=== PATIENT | female | born 1980 | race Hispanic/Latino ===

== ENCOUNTER 2019-10-19 09:16 | Emergency (ER) | payer MEDICAID, SELFPAY ==
[2019-10-19 09:58] LABS: #Basophils 0.1 thou/uL (0.0-0.2); #Eosinphils 0.3 thou/uL (0.0-0.7); #Lymphocytes 2.1 thou/uL (1.20-3.40); #Monocytes 0.4 thou/uL (0.11-0.59); #Neutrophils 3.5 thou/uL (1.40-6.50); %Basophils 1.2 % (0.0-1.0); %Eosinophils 5.1 % (0.0-10.0); %Lymphocytes 32.5 % (21.0-51.0); %Monocytes 6.4 % (0.0-10.0); %Neutrophils 54.9 % (42.0-75.0); Hemoglobin 7.8 g/dL (12.0-16.0); Mean Corpuscular HGB CONC 33.3 g/dL (32.0-36.0); Mean Corpuscular Hemoglobin 30.7 pg (27.0-31.0); Mean Platelet Volume 7.1 fL (7.4-10.4); Platelet Count 274 thou/uL (130-400); RBC Distribution Width 11.4 % (11.5-14.5); Red Blood Cell (RBC) Count 2.53 mill/uL (4.20-5.40); White Blood Cell (WBC) Count 6.5 thou/uL (4.8-10.8)
[2019-10-19 10:06] LABS: BHCG - Serum Negative (NEGATIVE); Pregs Control Background? CLEAR/WHITE (CLR/WHITE); Pregs Control Bar Appear? YES (CONTROL BAR)
[2019-10-19 10:19] LABS: ALT (SGPT) Less than 7 U/L (8-55); AST (SGOT) 9 U/L (5-34); Albumin 3.6 g/dL (3.5-5.0); Alkaline Phosphatase 98 U/L (40-110); Anion Gap 24 mmol/L (10-20); BUN (Urea Nitrogen) 94 mg/dL (7.0-18.7); Bilirubin, Total 0.5 mg/dL (0.2-1.2); Calc. Creatinine Clearance 0 mL/min (70-130); Calcium 7.6 mg/dL (7.8-10.44); Carbon Dioxide 22 mmol/L (22-29); Chloride 101 mmol/L (98-107); Estimated GFR-MDRD 3; Globulin 2.6 g/dL (2.4-3.5); Glucose 95 mg/dL (70-105); Potassium 4.3 mmol/L (3.5-5.1); Protein, Total 6.2 g/dL (6.0-8.3); Sodium 143 mmol/L (136-145)
[2019-10-19] MEDS ORDERED: Heparin 10,000 UNITS/ 10 ML VIAL ONE (12:34)
--- NOTE | 2019-10-24 12:30 | EKG ---
Test Reason : DIZZINESS Blood Pressure : / mmHG Vent. Rate : 078 BPM Atrial Rate : 078 BPM P-R Int : 176 ms QRS Dur : 096 ms QT Int : 394 ms P-R-T Axes : 043 044 051 degrees QTc Int : 449 ms Normal sinus rhythm Normal ECG Confirmed by JOANN RESENDIZ DO ([id number]), editorial assistant JERRICA RODRIGUEZ ([id number]) on 10/24/2019 12:29:24 PM Referred By: Confirmed By:JOANN RESENDIZ DO
== END 2019-10-19 19:30 | disposition home or self-care (01) ==
LOC: ERS 09:16
DX: N18.9 Chronic kidney disease, unspecified (principal); Z99.2 Dependence on renal dialysis
CPT/HCPCS: 36415; 80053; 84703; 85025; 90935; 93005; G0257; J1644

== ENCOUNTER 2019-11-10 11:32 | Emergency (ER) | payer MEDICAID, OTHER ==
[~2019-11-10 11:32] MED LIST: Heparin 10,000 UNITS/ 10 ML VIAL ONE
--- NOTE | 2019-11-10 12:53 | RAD ---
XR Chest 1 View Portable HISTORY: Dizziness COVID 19 Positive COMPARISON: None FINDINGS: The heart size is normal. A right-sided catheter is seen with tip in the projection of the SVC. The lungs are well expanded without focal areas of consolidation, pneumothorax or pleural effusions. IMPRESSION: No radiographic evidence of acute cardiopulmonary process.
[2019-11-10 13:16] LABS: #Eosinphils 0.1 thou/uL (0.0-0.7); #Lymphocytes 1.7 thou/uL (1.20-3.40); #Monocytes 0.3 thou/uL (0.11-0.59); #Neutrophils 3.1 thou/uL (1.40-6.50); %Basophils 0.2 % (0.0-1.0); %Eosinophils 1.5 % (0.0-10.0); %Lymphocytes 31.8 % (21.0-51.0); %Monocytes 6.2 % (0.0-10.0); %Neutrophils 60.4 % (42.0-75.0); Hemoglobin 8.7 g/dL (12.0-16.0); Mean Corpuscular HGB CONC 33.3 g/dL (32.0-36.0); Mean Corpuscular Hemoglobin 30.6 pg (27.0-31.0); Mean Corpuscular Volume 91.7 fL (78.0-98.0); Mean Platelet Volume 7.3 fL (7.4-10.4); Platelet Count 202 thou/uL (130-400); RBC Distribution Width 11.9 % (11.5-14.5); Red Blood Cell (RBC) Count 2.85 mill/uL (4.20-5.40); White Blood Cell (WBC) Count 5.2 thou/uL (4.8-10.8)
[2019-11-10 13:34] LABS: ALT (SGPT) 7 U/L (8-55); AST (SGOT) 13 U/L (5-34); Albumin 3.9 g/dL (3.5-5.0); Alkaline Phosphatase 78 U/L (40-110); Anion Gap 24 mmol/L (10-20); BUN (Urea Nitrogen) 82 mg/dL (7.0-18.7); Bilirubin, Total 0.7 mg/dL (0.2-1.2); Calc. Creatinine Clearance 0 mL/min (70-130); Calcium 6.1 mg/dL (7.8-10.44); Carbon Dioxide 18 mmol/L (22-29); Chloride 103 mmol/L (98-107); Estimated GFR-MDRD 2; Globulin 2.9 g/dL (2.4-3.5); Glucose 97 mg/dL (70-105); Potassium 4.6 mmol/L (3.5-5.1); Protein, Total 6.8 g/dL (6.0-8.3); Sodium 140 mmol/L (136-145)
[2019-11-10 16:16] LABS: HBSAg Index 0.16 S/CO (0-0.99); Hep B Surf Ag Non-Reactive S/CO (NonReactive)
[2019-11-10] MEDS ORDERED: Calcium Acetate 667 MG CAP PO SCH (17:00)
--- NOTE | 2019-11-10 17:10 | CON ---
DATE OF CONSULTATION: CONSULTING PHYSICIAN: Dr. Amaro. REASON FOR CONSULTATION: End-stage renal disease evaluation. REASON FOR ADMISSION: Not feeling well. HISTORY OF PRESENT ILLNESS: This is a female with history of end-stage renal disease, hypertension, who does not have funding to have outpatient dialysis, came to the ER with complaints of not feeling well and is being evaluated. She is in need for dialysis, her last dialysis was a week ago. She has also been tested for COVID. PAST MEDICAL HISTORY: Positive for end-stage renal disease and hypertension. PAST SURGICAL HISTORY: Dialysis access placement, renal biopsy, cholecystectomy. HOME MEDICATIONS: Reviewed. ALLERGIES: NO KNOWN DRUG ALLERGIES. SOCIAL HISTORY: No smoking, alcohol, or illicit drug use. FAMILY HISTORY: No history of kidney disease. REVIEW OF SYSTEMS: The following complete review of systems was negative, unless otherwise mentioned in the HPI or below: Constitutional: Weight loss or gain, ability to conduct usual activities. Skin: Rash, itching. Eyes: Double vision, pain. ENT/Mouth: Nose bleeding, neck stiffness, pain, tenderness. Cardiovascular: Palpitations, dyspnea on exertion, orthopnea. Respiratory: Shortness of breath, wheezing, cough, hemoptysis, fever or night sweats. Gastrointestinal: Poor appetite, abdominal pain, heartburn, nausea, vomiting, constipation, or diarrhea. Genitourinary: Urgency, frequency, dysuria, nocturia. Musculoskeletal: Pain, swelling. Neurologic/Psychiatric: Anxiety, depression. Allergy/Immunologic: Skin rash, bleeding tendency. PHYSICAL EXAMINATION: GENERAL: This is a well-built female, in no apparent distress. VITAL SIGNS: Reviewed. HEENT: Atraumatic and normocephalic. NECK: Supple. CVS: S1 and S2 heard. RESPIRATORY: Clear. GI: Abdomen is soft. MUSCULOSKELETAL: 1+ edema. NEUROLOGIC: Alert and awake. PSYCHIATRIC: Depressed. LABORATORY DATA: Hemoglobin is 8.7. Potassium 4.6, BUN 82, creatinine 16.5. ASSESSMENT AND PLAN: 1. End-stage renal disease. Plan to have dialysis. 2. Anemia. We will have Epogen. 3. Hypocalcemia. We will start on PhosLo. 4. Acidosis. We will have dialysis. 5. History of hypertension, stable. Plan to have dialysis. Unfortunately, the patient cannot have regular dialysis session. The patient was advised to come to the ER if not feeling well or at least once a week. Continue dialysis as needed. Job ID: [id number]
[2019-11-10] MEDS ORDERED: EPOETIN ALFA-EPBX (ESRD) 10,000 UNIT/ML VIAL IJ SCH (18:45)
[2019-11-10] MEDS ORDERED: Acetaminophen 500 MG TAB ONE (22:22)
--- NOTE | 2019-11-17 16:31 | EKG ---
Test Reason : Blood Pressure : / mmHG Vent. Rate : 073 BPM Atrial Rate : 073 BPM P-R Int : 178 ms QRS Dur : 086 ms QT Int : 452 ms P-R-T Axes : 040 051 069 degrees QTc Int : 497 ms Normal sinus rhythm Normal ECG No acute process Confirmed by DEISI ROBLEDO, STACY Mccarthy ([id number]), video effects editor MARIA ISABEL AQUINO ([id number]) on 11/17/2019 4:31:02 PM Referred By: Confirmed By:STACY LIPSCOMB MD
== END 2019-11-10 22:26 | disposition home or self-care (01) ==
LOC: ERS 11:32
DX: N18.6 End stage renal disease (principal); Z20.828 Contact with and (suspected) exposure to other viral communicable diseases; Z99.2 Dependence on renal dialysis
CPT/HCPCS: 36415; 71045; 80053; 85025; 87340; 90935; 93005; G0257; J1644; Q5105; U0002

== ENCOUNTER 2019-11-17 12:57 | Emergency (ER) | payer MEDICAID ==
[2019-11-17 14:33] LABS: #Basophils 0.1 thou/uL (0.0-0.2); #Eosinphils 0.2 thou/uL (0.0-0.7); #Lymphocytes 2.4 thou/uL (1.20-3.40); #Monocytes 0.5 thou/uL (0.11-0.59); %Basophils 1.1 % (0.0-1.0); %Eosinophils 3.2 % (0.0-10.0); %Lymphocytes 39.1 % (21.0-51.0); %Monocytes 7.7 % (0.0-10.0); %Neutrophils 48.9 % (42.0-75.0); Mean Corpuscular Hemoglobin 31.2 pg (27.0-31.0); Mean Corpuscular Volume 91.6 fL (78.0-98.0); Mean Platelet Volume 7.2 fL (7.4-10.4); Platelet Count 295 thou/uL (130-400); Red Blood Cell (RBC) Count 2.58 mill/uL (4.20-5.40); White Blood Cell (WBC) Count 6.1 thou/uL (4.8-10.8)
[2019-11-17 14:56] LABS: ALT (SGPT) Less than 7 U/L (8-55); AST (SGOT) 9 U/L (5-34); Albumin 3.6 g/dL (3.5-5.0); Alkaline Phosphatase 85 U/L (40-110); Anion Gap 25 mmol/L (10-20); BUN (Urea Nitrogen) 101 mg/dL (7.0-18.7); Bilirubin, Total 0.6 mg/dL (0.2-1.2); Calc. Creatinine Clearance 0 mL/min (70-130); Calcium 6.3 mg/dL (7.8-10.44); Carbon Dioxide 19 mmol/L (22-29); Chloride 97 mmol/L (98-107); Estimated GFR-MDRD 2; Globulin 2.9 g/dL (2.4-3.5); Glucose 92 mg/dL (70-105); Protein, Total 6.5 g/dL (6.0-8.3); Sodium 136 mmol/L (136-145)
--- NOTE | 2019-11-17 15:01 | RAD ---
XR Chest 1 View Portable HISTORY: Fatigue and generalized weakness. Patient on dialysis COMPARISON: 11/10/2019 FINDINGS: The heart size is normal. Right-sided dialysis catheter remains in place with tip in the pr ojection of the cavoatrial junction. The lungs are well expanded without focal areas of consolidation, mary kay pulmonary edema, pneumothorax or pleural effusions. IMPRESSION: No radiographic evidence of acute cardiopulmonary process.
[2019-11-17] MEDS ORDERED: Acetaminophen 325 MG TAB ONE (17:06)
[2019-11-17] MEDS ORDERED: Ondansetron ODT 4 MG TAB ONE (17:06)
== END 2019-11-17 21:51 | disposition home or self-care (01) ==
LOC: ERS 12:57
DX: I12.9 Hypertensive chronic kidney disease with stage 1 through stage 4 chronic kidney disease, or unspecified chronic kidney disease (principal); N18.9 Chronic kidney disease, unspecified
CPT/HCPCS: 36415; 71045; 80053; 85025; 90935; 93005; G0257; J1644; Q0162

== ENCOUNTER 2019-11-23 10:36 | Emergency (ER) | payer MEDICAID, OTHER ==
[2019-11-23 12:57] LABS: #Basophils 0.1 thou/uL (0.0-0.2); #Eosinphils 0.2 thou/uL (0.0-0.7); #Lymphocytes 2.5 thou/uL (1.20-3.40); #Monocytes 0.6 thou/uL (0.11-0.59); #Neutrophils 4.3 thou/uL (1.40-6.50); %Basophils 0.9 % (0.0-1.0); %Eosinophils 2.1 % (0.0-10.0); %Lymphocytes 32.7 % (21.0-51.0); %Monocytes 8.3 % (0.0-10.0); %Neutrophils 56.1 % (42.0-75.0); Hemoglobin 8.3 g/dL (12.0-16.0); Mean Corpuscular HGB CONC 32.8 g/dL (32.0-36.0); Mean Corpuscular Hemoglobin 30.8 pg (27.0-31.0); Mean Corpuscular Volume 93.9 fL (78.0-98.0); Mean Platelet Volume 6.7 fL (7.4-10.4); Platelet Count 333 thou/uL (130-400); RBC Distribution Width 11.6 % (11.5-14.5); Red Blood Cell (RBC) Count 2.69 mill/uL (4.20-5.40); White Blood Cell (WBC) Count 7.6 thou/uL (4.8-10.8)
[2019-11-23] MEDS ORDERED: Heparin 10,000 UNITS/ 10 ML VIAL ONE (13:06)
[2019-11-23 13:26] LABS: ALT (SGPT) Less than 7 U/L (8-55); AST (SGOT) 8 U/L (5-34); Albumin 3.8 g/dL (3.5-5.0); Alkaline Phosphatase 92 U/L (40-110); Anion Gap 23 mmol/L (10-20); BUN (Urea Nitrogen) 82 mg/dL (7.0-18.7); Bilirubin, Total 0.6 mg/dL (0.2-1.2); Calc. Creatinine Clearance 0 mL/min (70-130); Calcium 6.9 mg/dL (7.8-10.44); Carbon Dioxide 18 mmol/L (22-29); Chloride 104 mmol/L (98-107); Estimated GFR-MDRD 3; Globulin 2.9 g/dL (2.4-3.5); Glucose 82 mg/dL (70-105); Potassium 5.6 mmol/L (3.5-5.1); Protein, Total 6.7 g/dL (6.0-8.3); Sodium 139 mmol/L (136-145)
[2019-11-23 14:16] LABS: Bacteria/HPF None Seen HPF (None Seen); Bilirubin Negative (Negative); Blood, Urine 1+ (Negative); Clarity Clear (Clear); Glucose, Urine (Dipstick) 30 mg/dL (Negative); Ketone, Urine Negative (Negative); Leukocyte Negative Leu/uL (Negative); Nitrite Negative (Negative); Protein, Urine (Dipstick) 100 mg/dL (Neg-Trace); RBC/HPF 0-3 HPF (0-3); Specific Gravity, Urine 1.009 (1.002-1.036); Squamous Epithelial 0-3 HPF (0-3); Urobilinogen Normal mg/dL (Less than 2); WBC/HPF 0-3 HPF (0-3)
--- NOTE | 2019-11-23 14:35 | RAD ---
XR Chest 1 View Portable HISTORY: Nausea and vomiting COMPARISON: 11/17/2019 FINDINGS: The heart size is normal. Right-sided Port-A-Cath remains in place. The lungs are well expa nded without focal areas of consolidation, pneumothorax or pleural effusions. IMPRESSION: No radiographic evidence of acute cardiopulmonary process.
[2019-11-23] MEDS ORDERED: EPOETIN ALFA-EPBX (ESRD) 10,000 UNIT/ML VIAL IVP SCH (17:00)
--- NOTE | 2019-11-23 19:47 | CON ---
DATE OF CONSULTATION: 11/23/2019 CONSULTING PHYSICIAN: ER physician. REASON FOR CONSULTATION: End-stage renal disease evaluation and care. REASON FOR ADMISSION: Nausea, not feeling well. HISTORY OF PRESENT ILLNESS: This is a 39-year-old female with history of end-stage renal disease, hypertension, came to the hospital with above complaints and she gets dialysis as needed in the ER because she is undocumented and cannot have outpatient dialysis setup. PAST MEDICAL HISTORY: Positive for; 1. End-stage renal disease. 2. Hypertension. 3. Renal sclerosis. PAST SURGICAL HISTORY: 1. Dialysis access placement. 2. Renal biopsy. 3. Cholecystectomy. HOME MEDICATIONS: Reviewed. ALLERGIES: NO KNOWN DRUG ALLERGIES. SOCIAL HISTORY: No smoking, alcohol, or illicit drug abuse. FAMILY HISTORY: No history of kidney disease. REVIEW OF SYSTEMS: The following complete review of systems was negative, unless otherwise mentioned in the HPI or below: CONSTITUTIONAL: Weight loss or gain, ability to conduct usual activities. SKIN: Rash, itching. EYES: Double vision, pain. ENT/MOUTH: Nose bleeding, neck stiffness, pain, tenderness. CARDIOVASCULAR: Palpitations, dyspnea on exertion, orthopnea. RESPIRATORY: Shortness of breath, wheezing, cough, hemoptysis, fever or night sweats. GASTROINTESTINAL: Poor appetite, abdominal pain, heartburn, nausea, vomiting, constipation, or diarrhea. GENITOURINARY: Urgency, frequency, dysuria, nocturia. MUSCULOSKELETAL: Pain, swelling. NEUROLOGIC/PSYCHIATRIC: Anxiety, depression. ALLERGY/IMMUNOLOGIC: Skin rash, bleeding tendency. PHYSICAL EXAMINATION: GENERAL: This is a well-built female, in no apparent distress. VITAL SIGNS: Reviewed. HEENT: Atraumatic, normocephalic. NECK: Supple. CVS: S1, S2 heard. RESPIRATORY: Clear. GI: Abdomen is soft. MUSCULOSKELETAL: No tenderness. No edema. DERMATOLOGIC: No skin rash. NEUROLOGIC: Alert and awake. PSYCHIATRIC: Mood and affect normal. LABORATORY DATA: Hemoglobin 8.3. Potassium 5.6, BUN is 82, creatinine is 15.1. ASSESSMENT AND PLAN: 1. End-stage renal disease. We will have dialysis. Since she cannot have outpatient dialysis, the patient is getting p.r.n. dialysis from ER. 2. Hyperkalemia. 3. Acidosis. 4. Anemia. We will have Epogen. 5. History of hypertension, stable. We will have dialysis. The patient is seen in dialysis. We will continue her on dialysis as tolerated. Prognosis is very poor. Job ID: [id number]
== END 2019-11-23 22:09 | disposition home or self-care (01) ==
LOC: ERS 10:36
DX: I12.0 Hypertensive chronic kidney disease with stage 5 chronic kidney disease or end stage renal disease (principal); N18.6 End stage renal disease; Z99.2 Dependence on renal dialysis
CPT/HCPCS: 36415; 71045; 80053; 81003; 81015; 85025; 90935; 93005; 94760; G0257; J1644

== ENCOUNTER 2019-11-30 07:52 | Emergency (ER) | payer MEDICAID ==
[2019-11-30 08:17] LABS: #Eosinphils 0.1 thou/uL (0.0-0.7); #Lymphocytes 2.8 thou/uL (1.20-3.40); #Monocytes 0.5 thou/uL (0.11-0.59); #Neutrophils 2.9 thou/uL (1.40-6.50); %Basophils 0.7 % (0.0-1.0); %Eosinophils 2.3 % (0.0-10.0); %Lymphocytes 44.3 % (21.0-51.0); %Monocytes 7.1 % (0.0-10.0); %Neutrophils 45.7 % (42.0-75.0); Hemoglobin 7.3 g/dL (12.0-16.0); Mean Corpuscular Hemoglobin 30.7 pg (27.0-31.0); Mean Corpuscular Volume 93.3 fL (78.0-98.0); Mean Platelet Volume 7.3 fL (7.4-10.4); Platelet Count 221 thou/uL (130-400); RBC Distribution Width 11.7 % (11.5-14.5); Red Blood Cell (RBC) Count 2.38 mill/uL (4.20-5.40); White Blood Cell (WBC) Count 6.3 thou/uL (4.8-10.8)
--- NOTE | 2019-11-30 08:30 | RAD ---
XR Chest 1 View Portable HISTORY: Fluid overload. Patient on dialysis. Dizziness and nausea. 4 weeks ago tested positive for C OVID19 COMPARISON: 11/23/2019 FINDINGS: The heart size is normal. Right-sided dialysis catheter remains in place The lungs are well expanded without focal areas of consolidation, pneumothorax or pleural effusions. IMPRESSION: No radiographic evidence of acute cardiopulmonary process.
[2019-11-30 08:37] LABS: Magnesium 2.5 mg/dL (1.6-2.6)
[2019-11-30 08:43] LABS: ALT (SGPT) Less than 7 U/L (8-55); AST (SGOT) 7 U/L (5-34); Albumin 3.5 g/dL (3.5-5.0); Alkaline Phosphatase 83 U/L (40-110); Anion Gap 23 mmol/L (10-20); BUN (Urea Nitrogen) 71 mg/dL (7.0-18.7); Bilirubin, Total 0.6 mg/dL (0.2-1.2); Calc. Creatinine Clearance 0 mL/min (70-130); Calcium 6.9 mg/dL (7.8-10.44); Carbon Dioxide 18 mmol/L (22-29); Chloride 103 mmol/L (98-107); Estimated GFR-MDRD 3; Globulin 2.5 g/dL (2.4-3.5); Glucose 91 mg/dL (70-105); Phosphorus 10.1 mg/dL (2.3-4.7); Sodium 139 mmol/L (136-145)
[2019-11-30] MEDS ORDERED: Heparin 10,000 UNITS/ 10 ML VIAL ONE (11:05)
== END 2019-11-30 15:55 | disposition home or self-care (01) ==
LOC: ERS 07:52
DX: I12.9 Hypertensive chronic kidney disease with stage 1 through stage 4 chronic kidney disease, or unspecified chronic kidney disease (principal); N18.9 Chronic kidney disease, unspecified; Z99.2 Dependence on renal dialysis
CPT/HCPCS: 71045; 80053; 83735; 84100; 85025; 90935; 93005; G0257; J1644

== ENCOUNTER 2019-12-07 07:50 | Emergency (ER) | payer MEDICAID, OTHER, SELFPAY ==
[2019-12-07 08:30] LABS: #Basophils 0.1 thou/uL (0.0-0.2); #Eosinphils 0.3 thou/uL (0.0-0.7); #Lymphocytes 2.9 thou/uL (1.20-3.40); #Monocytes 0.6 thou/uL (0.11-0.59); #Neutrophils 3.2 thou/uL (1.40-6.50); %Basophils 1.5 % (0.0-1.0); %Eosinophils 3.7 % (0.0-10.0); %Monocytes 8.3 % (0.0-10.0); %Neutrophils 45.6 % (42.0-75.0); Mean Corpuscular HGB CONC 33.6 g/dL (32.0-36.0); Mean Corpuscular Hemoglobin 31.7 pg (27.0-31.0); Mean Corpuscular Volume 94.4 fL (78.0-98.0); Platelet Count 171 thou/uL (130-400); RBC Distribution Width 12.2 % (11.5-14.5); Red Blood Cell (RBC) Count 2.21 mill/uL (4.20-5.40)
--- NOTE | 2019-12-07 08:30 | RAD ---
EXAM: CHEST ONE VIEW HISTORY: Dizziness, nausea, vomiting, and weakness. Chest pain. COMPARISON: 11/30/2019 FINDINGS: Right-sided tunneled hemodialysis catheter remains in place. Cardiac silhouette is magnified by proje ction. Pulmonary vasculature is within normal limits. The lungs are clear. The osseous structures are intact. Surgical clips overlie the right upper quadrant. IMPRESSION: No acute cardiopulmonary process.
[2019-12-07 08:33] LABS: BHCG - Serum Negative (NEGATIVE); Pregs Control Background? CLEAR/WHITE (CLR/WHITE); Pregs Control Bar Appear? YES (CONTROL BAR)
[2019-12-07 09:44] LABS: Albumin 3.6 g/dL (3.5-5.0)
[2019-12-07 09:45] LABS: Chloride 105 mmol/L (98-107); Sodium 141 mmol/L (136-145)
[2019-12-07 09:46] LABS: Calcium 7.3 mg/dL (7.8-10.44)
[2019-12-07 09:47] LABS: Globulin 2.5 g/dL (2.4-3.5); Glucose 77 mg/dL (70-105); Protein, Total 6.1 g/dL (6.0-8.3)
[2019-12-07 09:47] LABS: Bacteria/HPF 1+ HPF (None Seen); Bilirubin Negative (Negative); Blood, Urine Negative (Negative); Clarity Clear (Clear); Glucose, Urine (Dipstick) 30 mg/dL (Negative); Ketone, Urine Negative (Negative); Leukocyte 25 Leu/uL (Negative); Nitrite Negative (Negative); Protein, Urine (Dipstick) 100 mg/dL (Neg-Trace); RBC/HPF 0-3 HPF (0-3); Specific Gravity, Urine 1.009 (1.002-1.036); Urobilinogen Normal mg/dL (Less than 2)
[2019-12-07 09:48] LABS: Anion Gap 24 mmol/L (10-20); Bilirubin, Total 0.5 mg/dL (0.2-1.2); Carbon Dioxide 17 mmol/L (22-29)
[2019-12-07 09:49] LABS: Alkaline Phosphatase 84 U/L (40-110)
[2019-12-07 09:50] LABS: Calc. Creatinine Clearance 0 mL/min (70-130); Estimated GFR-MDRD 3
[2019-12-07 09:51] LABS: BUN (Urea Nitrogen) 74 mg/dL (7.0-18.7)
[2019-12-07 09:52] LABS: AST (SGOT) 7 U/L (5-34)
[2019-12-07 09:53] LABS: ALT (SGPT) Less than 7 U/L (8-55)
[2019-12-07] MEDS ORDERED: Heparin 10,000 UNITS/ 10 ML VIAL ONE (10:47)
[2019-12-07] MEDS ORDERED: EPOETIN ALFA-EPBX (ESRD) 10,000 UNIT/ML VIAL IVP SCH (13:15)
--- NOTE | 2019-12-07 13:38 | CON ---
DATE OF CONSULTATION: 12/07/2019 CONSULTING PHYSICIAN: Dr. Carmine Coe from ER. REASON FOR CONSULTATION: End-stage renal disease evaluation. REASON FOR ADMISSION: Not feeling well. HISTORY OF PRESENT ILLNESS: A 39-year-old female with history of end-stage renal disease, renal sclerosis, came to the hospital with above complaints. The patient is not able to have outpatient dialysis set up due to insurance reasons and gets dialysis from the ER. She is complaining of weakness. She is anemic too and is going to get some blood transfusions. PAST MEDICAL HISTORY: Positive for end-stage renal disease, hypertension, renal sclerosis. PAST SURGICAL HISTORY: Dialysis access placement, renal biopsy, and cholecystectomy. HOME MEDICATIONS: Reviewed. ALLERGIES: NO KNOWN DRUG ALLERGIES. SOCIAL HISTORY: No smoking, alcohol, or illicit drugs. FAMILY HISTORY: No history of kidney disease. REVIEW OF SYSTEMS: The following complete review of systems was negative, unless otherwise mentioned in the HPI or below: CONSTITUTIONAL: Weight loss or gain, ability to conduct usual activities. SKIN: Rash, itching. EYES: Double vision, pain. ENT/MOUTH: Nose bleeding, neck stiffness, pain, tenderness. CARDIOVASCULAR: Palpitations, dyspnea on exertion, orthopnea. RESPIRATORY: Shortness of breath, wheezing, cough, hemoptysis, fever or night sweats. GASTROINTESTINAL: Poor appetite, abdominal pain, heartburn, nausea, vomiting, constipation, or diarrhea. GENITOURINARY: Urgency, frequency, dysuria, nocturia. MUSCULOSKELETAL: Pain, swelling. NEUROLOGIC/PSYCHIATRIC: Anxiety, depression. ALLERGY/IMMUNOLOGIC: Skin rash, bleeding tendency. PHYSICAL EXAMINATION: GENERAL: This is a well-built female, in no apparent distress. VITAL SIGNS: Reviewed. HEENT: Atraumatic, normocephalic. Oral mucosa moist. NECK: Supple. CV: S1 and S2. Rate and rhythm regular. RESPIRATORY: Clear. GI: Abdomen is soft. MUSCULOSKELETAL: No tenderness. No edema. DERMATOLOGIC: No skin rash. NEUROLOGIC: Alert and awake. PSYCHIATRIC: Mood and affect normal. Left arm fistula maturing well. LABORATORY DATA: Hemoglobin 7.0. Potassium 5.0, BUN is 74, and creatinine is 13.6. ASSESSMENT AND PLAN: 1. End-stage renal disease. Plan to have dialysis from the ER. 2. Anemia. Agree with transfusion. We will add Epogen. 3. History of hypertension, stable. 4. Hyperkalemia, better. 5. Acidosis, chronic. Overall, plan is to have dialysis today. Her fistula is also maturing. We will monitor that, and once fistula is ready to use, we will remove the tunneled dialysis catheter. Thank you for the consult. We will follow. Job ID: [id number]
[2019-12-07 17:41] LABS: HBSAg Index 0.17 S/CO (0-0.99); Hep B Surf Ag Non-Reactive S/CO (NonReactive)
== END 2019-12-07 19:38 | disposition home or self-care (01) ==
LOC: ERS 07:50
DX: I12.0 Hypertensive chronic kidney disease with stage 5 chronic kidney disease or end stage renal disease (principal); N18.6 End stage renal disease; D63.1 Anemia in chronic kidney disease
CPT/HCPCS: 36415; 36430; 71045; 80053; 81003; 81015; 84484; 84703; 85025; 86850; 86900; 86901; 87340; 90935; 93005; G0257; J1644; P9016